=== PATIENT | male | born 1950 | race Caucasian/White ===

== ENCOUNTER → 2024-01-15 | Outpatient (CLI) | payer MEDICARE, MEDICAID ==
[~2024-01-15] MED LIST: APIX5TAB3 PO; ATOR40TA72 PO; QUET50TA24 PO; iohexol 350MG/ML 100ml bottle IV ONE
[2024-01-15 10:36] LABS: ANION GAP 7 (8-16); BLOOD UREA NITROGEN 16 MG/DL (7-18); BUN/CREATININE RATIO 9.3 (10.0-20.0); CALCIUM 9.3 MG/DL (8.5-10.1); CHLORIDE 101 MMOL/L (99-107); CREATININE 1.72 MG/DL (0.60-1.10); GLUCOSE 122 MG/DL (70-104); SODIUM 142 MMOL/L (135-145); TOTAL CARBON DIOXIDE 33.7 MMOL/L (24-32); eGFR 39 ML/MIN
[2024-01-15 11:08] LABS: POTASSIUM 2.2 MMOL/L (3.5-5.1)
== END | disposition home or self-care (01) ==
LOC: RAD 09:41 → MERGE 11:00
PROVIDERS: ATTEND Internal Medicine Interventional Cardiology
DX: I71.21 Aneurysm of the ascending aorta, without rupture (principal); I10 Essential (primary) hypertension; I50.32 Chronic diastolic (congestive) heart failure; I71.20 Thoracic aortic aneurysm, without rupture, unspecified; I11.0 Hypertensive heart disease with heart failure; K76.89 Other specified diseases of liver; K22.89 Other specified disease of esophagus; K20.90 Esophagitis, unspecified without bleeding; K76.6 Portal hypertension
CPT/HCPCS: 36415; 71275; 80048; Q9967

== ENCOUNTER 2024-01-29 12:22 | Outpatient (CLI) | payer MEDICARE, MEDICAID ==
[~2024-01-29 12:22] MED LIST changes: -iohexol 350MG/ML 100ml bottle IV ONE
[2024-01-29 13:14] LABS: BASOPHILS # (AUTO) 0.1 X10'3 (0-0.2); BASOPHILS % (AUTO) 0.8 % (0-1); EOSINOPHILS # (AUTO) 0.3 X10'3 (0-0.9); EOSINOPHILS % (AUTO) 3.3 % (0-6); HEMATOCRIT 34.9 % (42.0-52.0); LYMPHOCYTES # (AUTO) 1.7 X10'3 (1.1-4.8); MEAN CORPUSCULAR HEMOGLOBIN 24.9 PG (27.0-31.0); MEAN CORPUSCULAR HGB CONC 31.5 g/dL (33.0-36.5); MEAN CORPUSCULAR VOLUME 79.1 FL (78-98); MEAN PLATELET VOLUME 8.2 FL (7.4-10.4); MONOCYTES # (AUTO) 0.7 X10'3 (0-0.9); NEUTROPHILS # (AUTO) 5.4 X10'3 (1.8-7.7); NEUTROPHILS % (AUTO) 65.9 % (42-75); PLATELET COUNT 282 X10'3 (140-440); RED BLOOD COUNT 4.41 X10'6 (4.70-6.10); RED CELL DISTRIBUTION WIDTH 20.2 % (11.5-14.5); WHITE BLOOD COUNT 8.2 X10'3 (4.5-11.0)
[2024-01-29 13:27] LABS: APTT 31 SECONDS (22-32); PROTHROMBIN TIME 10.7 SECONDS (9.0-12.0)
[2024-01-29 13:29] LABS: ALBUMIN 3.2 G/DL (3.4-5.0); ANION GAP 9 (8-16); BLOOD UREA NITROGEN 13 MG/DL (7-18); BUN/CREATININE RATIO 8.3 (10.0-20.0); CHLORIDE 103 MMOL/L (99-107); CHOLESTEROL 134 MG/DL (0-200); CREATININE 1.56 MG/DL (0.60-1.10); GLUCOSE 108 MG/DL (70-104); HDL CHOLESTEROL 44 MG/DL (35-60); LDL CHOLESTEROL 52 MG/DL (50-100); SODIUM 144 MMOL/L (135-145); TRIGLYCERIDES 162 MG/DL (20-135); eGFR 44 ML/MIN
[2024-01-29 13:39] LABS: POTASSIUM 2.7 MMOL/L (3.5-5.1)
[2024-02-02] MEDS ORDERED: ALLO100T PO (12:10)
[2024-02-02] MEDS ORDERED: FURO20TA4 PO (12:10)
[2024-02-02] MEDS ORDERED: SOTA80TA PO (12:10)
[2024-02-02] MEDS ORDERED: POTA-366 PO (12:10)
[2024-02-02] MEDS ORDERED: AMLO10TA13 PO (12:10)
[2024-02-02] MEDS ORDERED: LISI40TA13 PO (12:10)
== END 2024-01-29 23:59 | disposition home or self-care (01) ==
LOC: LAB 12:22
PROVIDERS: ATTEND Internal Medicine Interventional Cardiology
DX: I10 Essential (primary) hypertension (principal); E78.5 Hyperlipidemia, unspecified; I48.91 Unspecified atrial fibrillation
CPT/HCPCS: 80048; 80061; 85025; 85610; 85730

== ENCOUNTER 2024-03-01 16:13 | Outpatient (CLI) | payer MEDICARE, MEDICAID ==
[~2024-03-01 16:13] MED LIST changes: +ALLO100T PO; +AMLO10TA13 PO; +FURO20TA4 PO; +LISI40TA13 PO; +POTA-366 PO; +SOTA80TA PO
[2024-03-01 17:01] LABS: ALANINE AMINOTRANSFERASE 16 U/L (12-78); ALBUMIN 3.4 G/DL (3.4-5.0); ALBUMIN/GLOBULIN RATIO 0.6 (1.1-1.5); ALKALINE PHOSPHATASE 104 IU/L (46-116); ANION GAP 7 (8-16); ASPARTATE AMINO TRANSFERASE 11 U/L (10-37); BILIRUBIN,TOTAL 0.5 MG/DL (0.1-1.0); BLOOD UREA NITROGEN 16 MG/DL (7-18); BUN/CREATININE RATIO 9.1 (10.0-20.0); CALCIUM 9.4 MG/DL (8.5-10.1); CHLORIDE 103 MMOL/L (99-107); CREATININE 1.75 MG/DL (0.60-1.10); GLUCOSE 94 MG/DL (70-104); POTASSIUM 3.1 MMOL/L (3.5-5.1); SODIUM 139 MMOL/L (135-145); TOTAL CARBON DIOXIDE 29.1 MMOL/L (24-32); TOTAL PROTEIN 8.7 G/DL (6.4-8.2); eGFR 39 ML/MIN
== END 2024-03-01 23:59 | disposition home or self-care (01) ==
LOC: LAB 16:13
PROVIDERS: ATTEND Thoracic Surgery (Cardiothoracic Vascular Surgery)
DX: I12.9 Hypertensive chronic kidney disease with stage 1 through stage 4 chronic kidney disease, or unspecified chronic kidney disease (principal); N18.9 Chronic kidney disease, unspecified; I71.21 Aneurysm of the ascending aorta, without rupture
CPT/HCPCS: 36415; 80053; 82088; 84244

== ENCOUNTER 2024-03-28 08:30 | Inpatient (IN) | payer OTHER, MEDICAID ==
[~2024-03-28] VITALS: Ht 188 cm; Wt 119.5 kg
[~2024-03-28 08:30] MED LIST changes: -APIX5TAB3 PO; -POTA-366 PO
[2024-04-04 15:13] LABS: BASOPHILS # (AUTO) 0.1 X10'3 (0-0.2); BASOPHILS % (AUTO) 0.8 % (0-1); EOSINOPHILS # (AUTO) 0.2 X10'3 (0-0.9); EOSINOPHILS % (AUTO) 3.4 % (0-6); LYMPHOCYTES # (AUTO) 1.7 X10'3 (1.1-4.8); LYMPHOCYTES % (AUTO) 24.1 % (21-51); MEAN CORPUSCULAR HEMOGLOBIN 26.6 PG (27.0-31.0); MEAN CORPUSCULAR HGB CONC 31.8 g/dL (33.0-36.5); MEAN CORPUSCULAR VOLUME 83.7 FL (78-98); MEAN PLATELET VOLUME 8.6 FL (7.4-10.4); MONOCYTES # (AUTO) 0.8 X10'3 (0-0.9); NEUTROPHILS # (AUTO) 4.1 X10'3 (1.8-7.7); NEUTROPHILS % (AUTO) 59.7 % (42-75); PRE OP HEMATOCRIT 35.9 % (42.0-52.0); PRE OP HEMOGLOBIN 11.4 g/dL (14.0-17.9); PRE OP PLATELET COUNT 228 X10'3 (140-440); PRE OP WHITE BLOOD COUNT 6.9 10'3 (4.8-10.8); RED BLOOD COUNT 4.29 X10'6 (4.70-6.10); RED CELL DISTRIBUTION WIDTH 20.3 % (11.5-14.5)
[2024-04-04] MEDS ORDERED: APIX5TAB3 PO (15:15)
[2024-04-04 15:29] LABS: HEMOGLOBIN A1C 5.9 % (4.5-6.2)
[2024-04-04 15:38] LABS: PRE OP PROTIME 10.9 SECONDS (9.0-12.0)
[2024-04-04 15:40] LABS: ALBUMIN 3.3 G/DL (3.4-5.0); ALBUMIN/GLOBULIN RATIO 0.7 (1.1-1.5); ALKALINE PHOSPHATASE 114 IU/L (46-116); BLOOD UREA NITROGEN 13 MG/DL (7-18); CALCIUM 9.3 MG/DL (8.5-10.1); CHLORIDE 104 MMOL/L (99-107); CREATININE 1.62 MG/DL (0.60-1.10); PRE OP ALT 13 U/L (30-65); PRE OP ANION GAP 7 (8-16); PRE OP AST 13 U/L (10-37); PRE OP BILIRUB, TOTAL 0.5 MG/DL (0.0-1.0); PRE OP GLUCOSE 99 MG/DL (70-104); PRE OP SODIUM 143 MMOL/L (135-145); TOTAL CARBON DIOXIDE 31.8 MMOL/L (24-32); TOTAL PROTEIN 8.2 G/DL (6.4-8.2); eGFR 42 ML/MIN
[2024-04-04 15:45] LABS: ANISOCYTOSIS 3+; PLATELET ESTIMATE NORMAL
[2024-04-04 15:50] LABS: PRE OP POTASSIUM 2.7 MMOL/L (3.4-5.1)
[2024-04-05 05:44] LABS: ABG BASE EXCESS 4.5 mmol/L (-2.0-3.0); ABG HCO3 27.7 mmol/L (21.0-28.0); ABG OXYGEN SATURATION 92.4 % (94.0-98.0); ABG PCO2 (T) 36.2 mmHg (35.0-48.0); ABG PH (T) 7.501 (7.350-7.450); ABG PO2 (T) 64.2 mmHg (83.0-108.0); ALLEN'S TEST POSITIVE; FCOHb 2.1 % (0.5-1.5); FHHb 7.4 % (0.0-5.0); FMetHb 0.3 % (0.0-1.5); FO2Hb 90.2 % (94.0-98.0); MODE ROOM AIR
[2024-04-11] VITALS (22 sets, daily range): BP systolic 86–127; BP diastolic 48–78; PULSE 51–110; RESP 12–22; TEMP 98.4; O2SAT 90–100
[2024-04-11] MEDS: metoprolol tartrate 12.5mg (1/2 tablet) PO ONE (05:30)
[2024-04-11] MEDS: DOCUMENT DATE & TIME OF BETA-BLOCKER PO ONE (05:30)
[2024-04-11] MEDS: cefazolin 2gm/D5W 100mL 100 ML IV ONE (05:30)
[2024-04-11] MEDS ORDERED: dextrose 50%-water 50ml dispensing syringe IV PRN ×2 (05:30→11:15)
[2024-04-11] MEDS: Insulin Reg/NS 100units/100mL 100 ML IV SCH ×2 (05:30→11:54)
[2024-04-11] MEDS: famotidine 20mg tablet PO ONE (06:29)
[2024-04-11] MEDS: mupirocin 2% nasal ointment 1gm UD NS ONE (06:30)
[2024-04-11] MEDS: ringers solution, lacted 1,000 ML IV SCH (06:31)
[2024-04-11 06:41] LABS: ISTAT CREATININE 2.5 mg/dL (0.8-1.3); ISTAT HGB 11.9 g/dl (14.0-17.9); ISTAT IONIZED CALCIUM 1.11 mmol/L (1.03-1.32)
[2024-04-11] MEDS: BUPIVAcaine 2.5mg/ml inj 50ml vial (contains preservative) ONE (06:44)
[2024-04-11 07:01] LABS: ISTAT K CONFIRMATION 2.9 mmol/L
[2024-04-11] MEDS: ceFAZolin 1000mg inj ONE (07:09)
[2024-04-11] MEDS: vancomycin 1,000mg inj ONE (07:10)
[2024-04-11] MEDS: epiNEPHrine 1 mg/ml inj ONE (07:10)
[2024-04-11] MEDS ORDERED: MIDAZolam 1mg/ml 10ml vial ONE (07:21)
[2024-04-11] MEDS ORDERED: SUfentanil 50mcg/ml 1ml amp IV ONE (07:26)
[2024-04-11] MEDS ORDERED: fentaNYL/PF 50MCG/1 ML 2ML syringe IV PRN (07:30)
[2024-04-11] MEDS: FENTANYL-0.9 % NACL/PF 100 ML IV SCH (07:30)
[2024-04-11] MEDS: midazolam 1 mg/ML 2ml injection IV ONE (07:30)
[2024-04-11] MEDS: midazolam 100mg in NS 100ml 100 ML IV SCH (07:30)
[2024-04-11] MEDS ORDERED: isoflurane 100ml inhalation liquid IH ONE (07:56)
[2024-04-11] MEDS: LORazepam 2 mg/ml vial IV PRN (07:58)
[2024-04-11 07:59] LABS: ISTAT K 2.9 mmol/L (3.5-5.1)
[2024-04-11 08:07] LABS: BILIRUBIN,URINE NEGATIVE (Neg); CLARITY,URINE SLIGHTLY CLOUDY (Clear); COLOR,URINE YELLOW (Yellow); GLUCOSE, URINE NEGATIVE (Neg); KETONES,URINE NEGATIVE (Neg); LEUKOCYTE ESTERASE ,URINE MODERATE (Neg); NITRITES, URINE POSITIVE (Neg); OCCULT BLOOD,URINE NEGATIVE (Neg); PROTEIN,URINE NEGATIVE (Neg); UROBILINOGEN,URINE 0.2 E.U/dL (0.2-1.0)
[2024-04-11 08:13] LABS: UA COLLECTION TYPE CLN CATCH MIDSTREAM
[2024-04-11 08:16] LABS: BACTERIA,URINE 3+ /HPF (Neg); SQUAMOUS EPITHELIAL CELL,UR MODERATE /LPF (FEW)
[2024-04-11 08:17] LABS: RBC,URINE 0-2 /HPF (0-2); WBC,URINE TNTC /HPF (0-4)
[2024-04-11 08:40] LABS: ABG BASE EXCESS -1.7 mmol/L (-2.0-3.0); ABG HCO3 23.9 mmol/L (21.0-28.0); ABG OXYGEN SATURATION 99.7 % (94.0-98.0); ABG PH 7.353 (7.350-7.450); CL (ABG) 104 mmol/L (98-107); FCOHb 0.3 % (0.5-1.5); FHHb 0.3 % (0.0-5.0); FMetHb 0.3 % (0.0-1.5); FO2Hb 99.1 % (94.0-98.0); GLUCOSE (ABG) 104 mg/dl (65-95); IONIZED CA (ABG) 1.11 mmol/L (1.15-1.33); TOTAL HEMOGLOBIN 10.6 G/dl (13.5-17.5)
[2024-04-11 09:03] LABS: ABG PO2 305.8 mmHg (83.0-108.0); K (ABG) 2.7 mmol/L (3.40-4.50)
[2024-04-11] MEDS ORDERED: 0.9 % SODIUM CHLORIDE 10 ML VIAL ONE (09:04)
[2024-04-11] MEDS ORDERED: LIDOcaine 2% (20mg/ml) 5ml vial ONE (09:04)
[2024-04-11] MEDS ORDERED: propofol inj 20 ML IV ONE (09:04)
[2024-04-11] MEDS ORDERED: rocuronium 10mg/ml inj IV ONE ×3 (09:04)
[2024-04-11] MEDS ORDERED: phenylephrine 10mg/ml inj. -priapism dosing ONE (09:04)
[2024-04-11 09:05] LABS: ACT @ 1.70 U 320 SEC (193-297); ACT @ 2.84 U 414 SEC (260-420); BASELINE ACT 157 SEC (101-148)
[2024-04-11] MEDS ORDERED: albumin (Human) 5% 250ml 250 ML IV ONE (09:09)
[2024-04-11 09:10] LABS: ABG BASE EXCESS VENOUS -0.2 mmol/L (-2.0-3.0); ABG HCO3 VENOUS 25.9 mmol/L (22.0-29.0); ABG PH (VENOUS) 7.332 (7.320-7.430); ABG PO2 VENOUS 51.4 mmHg (23.0-48.0); CL (ABG) 100 mmol/L (98-107); FCOHb VENOUS 0.5 % (0.5-1.5); FHHb VENOUS 17.9 %; FMetHb VENOUS 0.1 % (0.5-1.5); FO2Hb VENOUS 81.5 % (0-80.0); GLUCOSE (ABG) 108 mg/dl (65-95); IONIZED CA (ABG) 1.05 mmol/L (1.15-1.33); K (ABG) 3.3 mmol/L (3.40-4.50); TOTAL HEMOGLOBIN 8.2 G/dl (13.5-17.5)
[2024-04-11 09:15] LABS: ABG HCO3 26.2 mmol/L (21.0-28.0); ABG PCO2 44.1 mmHg (35.0-48.0); ABG PH 7.391 (7.350-7.450); CL (ABG) 101 mmol/L (98-107); FCOHb 0.8 % (0.5-1.5); FMetHb 0.1 % (0.0-1.5); FO2Hb 99.1 % (94.0-98.0); GLUCOSE (ABG) 110 mg/dl (65-95); IONIZED CA (ABG) 1.05 mmol/L (1.15-1.33); K (ABG) 3.2 mmol/L (3.40-4.50); TOTAL HEMOGLOBIN 8.2 G/dl (13.5-17.5)
[2024-04-11 09:42] LABS: ABG BASE EXCESS -0.1 mmol/L (-2.0-3.0); ABG HCO3 24.9 mmol/L (21.0-28.0); ABG OXYGEN SATURATION 99.8 % (94.0-98.0); ABG PCO2 42.4 mmHg (35.0-48.0); ABG PH 7.387 (7.350-7.450); CL (ABG) 101 mmol/L (98-107); FCOHb 0.4 % (0.5-1.5); FHHb 0.2 % (0.0-5.0); FMetHb 0.2 % (0.0-1.5); FO2Hb 99.2 % (94.0-98.0); GLUCOSE (ABG) 108 mg/dl (65-95); IONIZED CA (ABG) 1.07 mmol/L (1.15-1.33); K (ABG) 3.3 mmol/L (3.40-4.50); TOTAL HEMOGLOBIN 8.6 G/dl (13.5-17.5)
[2024-04-11 10:22] LABS: ABG BASE EXCESS 1.1 mmol/L (-2.0-3.0); ABG HCO3 25.4 mmol/L (21.0-28.0); ABG OXYGEN SATURATION 99.8 % (94.0-98.0); ABG PH 7.432 (7.350-7.450); CL (ABG) 102 mmol/L (98-107); FCOHb 0.5 % (0.5-1.5); FHHb 0.2 % (0.0-5.0); FMetHb 0.3 % (0.0-1.5); GLUCOSE (ABG) 120 mg/dl (65-95); IONIZED CA (ABG) 1.28 mmol/L (1.15-1.33); K (ABG) 5.1 mmol/L (3.40-4.50); TOTAL HEMOGLOBIN 7.9 G/dl (13.5-17.5)
[2024-04-11 10:33] LABS: ABG BASE EXCESS -0.6 mmol/L (-2.0-3.0); ABG HCO3 23.6 mmol/L (21.0-28.0); ABG OXYGEN SATURATION 99.7 % (94.0-98.0); ABG PCO2 36.6 mmHg (35.0-48.0); ABG PH 7.427 (7.350-7.450); CL (ABG) 103 mmol/L (98-107); FCOHb 0.9 % (0.5-1.5); FHHb 0.3 % (0.0-5.0); FMetHb 0.3 % (0.0-1.5); FO2Hb 98.5 % (94.0-98.0); GLUCOSE (ABG) 113 mg/dl (65-95); IONIZED CA (ABG) 1.16 mmol/L (1.15-1.33); K (ABG) 3.7 mmol/L (3.40-4.50)
[2024-04-11 10:37] LABS: ACTIVATED CLOTTING TIME 143 SEC (101-148)
[2024-04-11] MEDS ORDERED: normal saline 250ml IV soln 250 ML IV PRN (11:15)
[2024-04-11] MEDS ORDERED: insulin glargine (Lantus) pen - multi-dose SQ PRN (11:15)
[2024-04-11] MEDS ORDERED: sodium phosphate inj. 15 MMOL in dextrose 5%-water 250 ML IV PRN (11:15)
[2024-04-11] MEDS ORDERED: ondansetron/PF 4mg/2ml inj IV PRN (11:15)
[2024-04-11] MEDS ORDERED: nitroGLYCERIN-Tridil 50MG/D5W 250 ML IV PRN (11:15)
[2024-04-11] MEDS ORDERED: potassium Cl 40MEQ/270ML bag 250 ML IV PRN (11:15)
[2024-04-11] MEDS ORDERED: magnesium sulf-water 2g/50mL 50 ML IV PRN (11:15)
[2024-04-11] MEDS ORDERED: morphine 2 MG/ML inj. syringe IV PRN (11:15)
[2024-04-11] MEDS ORDERED: metoclopramide 5 mg/ml inj IV PRN (11:15)
[2024-04-11] MEDS ORDERED: Neutra Phos packet PO PRN (11:15)
[2024-04-11] MEDS ORDERED: potassium CL 10mEq/100ml bag 100 ML IV PRN (11:15)
[2024-04-11] MEDS ORDERED: DOBUTamine-DoBUTrex 500mg/D5W 250 ML IV PRN (11:15)
[2024-04-11] MEDS ORDERED: acetaminophen 325mg tablet PO PRN (11:15)
[2024-04-11] MEDS ORDERED: sodium phosphate inj. 30 MMOL in dextrose 5%-water 250 ML IV PRN (11:15)
[2024-04-11] MEDS ORDERED: magnesium hydroxide 30ml (MOM) UD suspension PO PRN (11:15)
[2024-04-11] MEDS ORDERED: mineral oil 133ml enema RC PRN (11:15)
[2024-04-11] MEDS ORDERED: niCARDipine-NS 40mg/200ml IVPB 200 ML IV PRN (11:15)
[2024-04-11] MEDS ORDERED: bisacodyl 10mg suppository rectal RC PRN (11:15)
[2024-04-11 11:31] LABS: ABG BASE EXCESS -1.2 mmol/L (-2.0-3.0); ABG HCO3 24.9 mmol/L (21.0-28.0); ABG OXYGEN SATURATION 99.6 % (94.0-98.0); ABG PCO2 (T) 44.2 mmHg (35.0-48.0); ABG PH (T) 7.361 (7.350-7.450); ABG PO2 (T) 233.6 mmHg (83.0-108.0); FCOHb 0.4 % (0.5-1.5); FHHb 0.4 % (0.0-5.0); FMetHb 0.2 % (0.0-1.5); MODE VENT - SIMV; PATIENT TEMPERATURE 35.3; PEEP 5 cm H2O; RESPIRATORY RATE 12 b/min; TIDAL VOLUME 600 mL; TOTAL HEMOGLOBIN 11.4 G/dl (13.5-17.5)
[2024-04-11 11:41] LABS: BASOPHILS # (AUTO) 0.1 X10'3 (0-0.2); BASOPHILS % (AUTO) 0.4 % (0-1); EOSINOPHILS # (AUTO) 0.3 X10'3 (0-0.9); EOSINOPHILS % (AUTO) 2.3 % (0-6); HEMATOCRIT 29.4 % (42.0-52.0); HEMOGLOBIN 9.3 g/dl (14.0-17.9); LYMPHOCYTES # (AUTO) 1.6 X10'3 (1.1-4.8); LYMPHOCYTES % (AUTO) 11.4 % (21-51); MEAN CORPUSCULAR HEMOGLOBIN 26.8 PG (27.0-31.0); MEAN CORPUSCULAR HGB CONC 31.6 g/dL (33.0-36.5); MONOCYTES # (AUTO) 0.7 X10'3 (0-0.9); MONOCYTES % (AUTO) 4.9 % (2-12); NEUTROPHILS # (AUTO) 11.4 X10'3 (1.8-7.7); PLATELET COUNT 170 X10'3 (140-440); RED BLOOD COUNT 3.46 X10'6 (4.70-6.10); RED CELL DISTRIBUTION WIDTH 20.3 % (11.5-14.5); WHITE BLOOD COUNT 14.1 X10'3 (4.5-11.0)
[2024-04-11 11:54] LABS: APTT 29 SECONDS (22-32); INR 1.2 INR; PROTHROMBIN TIME 12.3 SECONDS (9.0-12.0)
[2024-04-11] MEDS: sodium chloride 0.45% 1,000 ML IV SCH (11:54)
[2024-04-11 12:00] LABS: ALANINE AMINOTRANSFERASE 6 U/L (12-78); ALBUMIN 2.8 G/DL (3.4-5.0); ALBUMIN/GLOBULIN RATIO 0.8 (1.1-1.5); ALKALINE PHOSPHATASE 77 IU/L (46-116); ANION GAP 9 (8-16); ASPARTATE AMINO TRANSFERASE 20 U/L (10-37); BILIRUBIN,TOTAL 0.4 MG/DL (0.1-1.0); BLOOD UREA NITROGEN 27 MG/DL (7-18); BUN/CREATININE RATIO 12.2 (10.0-20.0); CALCIUM 8.7 MG/DL (8.5-10.1); CHLORIDE 105 MMOL/L (99-107); CREATININE 2.22 MG/DL (0.60-1.10); GLUCOSE 139 MG/DL (70-104); PHOSPHORUS 2.4 MG/DL (2.3-4.5); POTASSIUM 3.7 MMOL/L (3.5-5.1); SODIUM 140 MMOL/L (135-145); TOTAL CARBON DIOXIDE 26.3 MMOL/L (24-32); TOTAL PROTEIN 6.2 G/DL (6.4-8.2); eCRCL 35 ML/MIN; eGFR 29 ML/MIN
[2024-04-11] MEDS: potassium Cl 20mEq/100mL bag 100 ML IV PRN (12:22)
[2024-04-11] MEDS: gabapentin 300mg capsule PO SCH (12:23)
[2024-04-11 12:56] LABS: ANISOCYTOSIS 3+; ELLIPTOCYTES FEW; PLATELET ESTIMATE NORMAL; SCHISTOCYTES FEW
[2024-04-11] MEDS: potassium Cl 40MEQ/1/2NS 520ml 520 ML IV PRN (13:20)
[2024-04-11 13:29] LABS: FIBRINOGEN 210 MG/DL (177-424)
[2024-04-11] MEDS: dexmedetomidin/NS 400mcg/100ml 100 ML IV SCH ×2 (15:39→23:01)
[2024-04-11] MEDS: albumin (Human) 5% 250ml 250 ML IV PRN (16:01)
[2024-04-11] MEDS: cefazolin 2gm/D5W 100mL 100 ML IV SCH (16:17)
[2024-04-11] MEDS: NORepinephrine 8mg/ 250ml NS 250 ML IV SCH (17:30)
[2024-04-11 17:45] LABS: BASOPHILS % (AUTO) 0.1 % (0-1); EOSINOPHILS % (AUTO) 0 % (0-6); HEMATOCRIT 24.3 % (42.0-52.0); HEMOGLOBIN 7.7 g/dl (14.0-17.9); LYMPHOCYTES # (AUTO) 0.5 X10'3 (1.1-4.8); LYMPHOCYTES % (AUTO) 4.2 % (21-51); MEAN CORPUSCULAR HEMOGLOBIN 26.9 PG (27.0-31.0); MEAN CORPUSCULAR HGB CONC 31.9 g/dL (33.0-36.5); MEAN CORPUSCULAR VOLUME 84.5 FL (78-98); MEAN PLATELET VOLUME 8.7 FL (7.4-10.4); MONOCYTES # (AUTO) 0.3 X10'3 (0-0.9); MONOCYTES % (AUTO) 2.8 % (2-12); NEUTROPHILS # (AUTO) 11.3 X10'3 (1.8-7.7); NEUTROPHILS % (AUTO) 92.9 % (42-75); PLATELET COUNT 153 X10'3 (140-440); RED BLOOD COUNT 2.87 X10'6 (4.70-6.10); RED CELL DISTRIBUTION WIDTH 20.1 % (11.5-14.5); WHITE BLOOD COUNT 12.2 X10'3 (4.5-11.0)
[2024-04-11 17:53] LABS: ALBUMIN 3.3 G/DL (3.4-5.0); ANION GAP 7 (8-16); BLOOD UREA NITROGEN 28 MG/DL (7-18); BUN/CREATININE RATIO 11.9 (10.0-20.0); CALCIUM 8.2 MG/DL (8.5-10.1); CHLORIDE 109 MMOL/L (99-107); CREATININE 2.36 MG/DL (0.60-1.10); GLUCOSE 153 MG/DL (70-104); MAGNESIUM 2.7 MG/DL (1.5-2.4); PHOSPHORUS 2.3 MG/DL (2.3-4.5); POTASSIUM 3.8 MMOL/L (3.5-5.1); SODIUM 141 MMOL/L (135-145); TOTAL CARBON DIOXIDE 25.2 MMOL/L (24-32); eCRCL 33 ML/MIN; eGFR 27 ML/MIN
[2024-04-11] MEDS ORDERED: sotalol HCl 40mg (1/2 tablet) PO SCH (20:00)
[2024-04-11] MEDS: sennosides/docusate sodium tablet PO SCH (20:00)
[2024-04-11] MEDS: QUEtiapine 25mg tablet PO SCH (21:00)
[2024-04-11] MEDS: atorvastatin 10mg tablet PO SCH (21:00)
[2024-04-11] MEDS: mupirocin 2% nasal ointment 1gm UD NS SCH (21:11)
[2024-04-11] MEDS: vancomycin/NS 1 GM ADD-VANTAGE 250 ML IV SCH (21:11)
[2024-04-11] MEDS ORDERED: dexmedetomidin/NS 400mcg/100ml 100 ML IV PRN (21:44)
[2024-04-11] MEDS: morphine 4 MG/ML inj SYRINge IV PRN (21:57)
[2024-04-12] VITALS (24 sets, daily range): BP systolic 100–141; BP diastolic 53–90; PULSE 70–79; RESP 10–20; O2SAT 90–98
[2024-04-12 02:21] LABS: BASOPHILS % (AUTO) 0 % (0-1); EOSINOPHILS % (AUTO) 0 % (0-6); HEMATOCRIT 24.3 % (42.0-52.0); HEMOGLOBIN 7.7 g/dl (14.0-17.9); LYMPHOCYTES # (AUTO) 0.6 X10'3 (1.1-4.8); LYMPHOCYTES % (AUTO) 3.8 % (21-51); MEAN CORPUSCULAR HEMOGLOBIN 26.6 PG (27.0-31.0); MEAN CORPUSCULAR HGB CONC 31.6 g/dL (33.0-36.5); MEAN CORPUSCULAR VOLUME 84.4 FL (78-98); MEAN PLATELET VOLUME 8.8 FL (7.4-10.4); MONOCYTES # (AUTO) 0.5 X10'3 (0-0.9); MONOCYTES % (AUTO) 3.1 % (2-12); NEUTROPHILS # (AUTO) 14.4 X10'3 (1.8-7.7); NEUTROPHILS % (AUTO) 93.1 % (42-75); PLATELET COUNT 136 X10'3 (140-440); RED BLOOD COUNT 2.88 X10'6 (4.70-6.10); RED CELL DISTRIBUTION WIDTH 19.8 % (11.5-14.5); WHITE BLOOD COUNT 15.4 X10'3 (4.5-11.0)
[2024-04-12 02:32] LABS: APTT 27 SECONDS (22-32); INR 1.1 INR; PROTHROMBIN TIME 11.1 SECONDS (9.0-12.0)
[2024-04-12 02:34] LABS: ALANINE AMINOTRANSFERASE 10 U/L (12-78); ALBUMIN 3.2 G/DL (3.4-5.0); ALKALINE PHOSPHATASE 75 IU/L (46-116); ANION GAP 8 (8-16); ASPARTATE AMINO TRANSFERASE 20 U/L (10-37); BILIRUBIN,TOTAL 0.5 MG/DL (0.1-1.0); BLOOD UREA NITROGEN 28 MG/DL (7-18); BUN/CREATININE RATIO 13.6 (10.0-20.0); CALCIUM 8.5 MG/DL (8.5-10.1); CHLORIDE 111 MMOL/L (99-107); CREATININE 2.06 MG/DL (0.60-1.10); GLUCOSE 129 MG/DL (70-104); MAGNESIUM 2.4 MG/DL (1.5-2.4); PHOSPHORUS 2.2 MG/DL (2.3-4.5); POTASSIUM 3.9 MMOL/L (3.5-5.1); SODIUM 144 MMOL/L (135-145); TOTAL CARBON DIOXIDE 25.5 MMOL/L (24-32); TOTAL PROTEIN 6.5 G/DL (6.4-8.2); eCRCL 38 ML/MIN; eGFR 32 ML/MIN
[2024-04-12 06:48] LABS: ABG PO2 389.7 mmHg (83.0-108.0)
[2024-04-12 06:48] LABS: ABG PO2 404.9 mmHg (83.0-108.0)
[2024-04-12 06:49] LABS: ABG PO2 364.1 mmHg (83.0-108.0)
[2024-04-12 06:50] LABS: ABG PO2 417.4 mmHg (83.0-108.0)
[2024-04-12] MEDS: allopurinol 100mg tablet PO SCH (07:34)
[2024-04-12] MEDS: metoprolol tartrate 12.5mg (1/2 tablet) PO SCH (07:34)
[2024-04-12] MEDS: aspirin 81mg tab.chew PO SCH (07:35)
[2024-04-12] MEDS ORDERED: DOBUTamine-DoBUTrex 500mg/D5W 250 ML IV PRN (14:35)
[2024-04-12] MEDS: Insulin Reg/NS 100units/100mL 100 ML IV SCH (14:38)
[2024-04-12] MEDS: FENTANYL-0.9 % NACL/PF 100 ML IV SCH (14:39)
[2024-04-12] MEDS ORDERED: niCARDipine-NS 40mg/200ml IVPB 200 ML IV PRN (14:39)
[2024-04-12] MEDS ORDERED: nitroGLYCERIN-Tridil 50MG/D5W 250 ML IV PRN (14:40)
[2024-04-12] MEDS: HYDROcodone/acetaminophen 10/325mg tab PO PRN (17:08)
[2024-04-12] MEDS ORDERED: glucagon, human recombinant 1mg kit SUBCUT PRN (17:25)
[2024-04-12] MEDS ORDERED: dextrose 50%-water 50ml dispensing syringe IV PRN ×2 (17:25)
[2024-04-12] MEDS ORDERED: DEXTROSE 15 GM of carb/4 tabs (each vial/BOTTLE has 4 tablets) PO PRN ×2 (17:25)
[2024-04-12] MEDS: INSULIN LISPRO 100 UNIT/ML INSULN.PEN MULTI-DOSE SQ SCH (21:00)
[2024-04-12] MEDS: insulin glargine (Lantus) pen - multi-dose SQ SCH (21:00)
[2024-04-12] MEDS: gabapentin 300mg capsule PO SCH (21:00)
[2024-04-13] VITALS (28 sets, daily range): BP systolic 90–150; BP diastolic 54–99; PULSE 62–79; RESP 12–22; TEMP 97; O2SAT 86–98
[2024-04-13 02:41] LABS: BASOPHILS % (AUTO) 0.1 % (0-1); EOSINOPHILS % (AUTO) 0 % (0-6); LYMPHOCYTES # (AUTO) 0.5 X10'3 (1.1-4.8); MEAN CORPUSCULAR HEMOGLOBIN 26.7 PG (27.0-31.0); MEAN CORPUSCULAR HGB CONC 31.7 g/dL (33.0-36.5); MEAN CORPUSCULAR VOLUME 84.1 FL (78-98); MEAN PLATELET VOLUME 8.9 FL (7.4-10.4); MONOCYTES # (AUTO) 1.4 X10'3 (0-0.9); MONOCYTES % (AUTO) 7.6 % (2-12); NEUTROPHILS # (AUTO) 16.2 X10'3 (1.8-7.7); NEUTROPHILS % (AUTO) 89.3 % (42-75); PLATELET COUNT 107 X10'3 (140-440); RED BLOOD COUNT 2.43 X10'6 (4.70-6.10); RED CELL DISTRIBUTION WIDTH 20.2 % (11.5-14.5); WHITE BLOOD COUNT 18.1 X10'3 (4.5-11.0)
[2024-04-13 02:44] LABS: HEMATOCRIT 20.4 % (42.0-52.0); HEMOGLOBIN 6.5 g/dl (14.0-17.9)
[2024-04-13 02:52] LABS: ALBUMIN 2.8 G/DL (3.4-5.0); ANION GAP 8 (8-16); BLOOD UREA NITROGEN 33 MG/DL (7-18); BUN/CREATININE RATIO 20.9 (10.0-20.0); CALCIUM 8.4 MG/DL (8.5-10.1); CHLORIDE 108 MMOL/L (99-107); CREATININE 1.58 MG/DL (0.60-1.10); GLUCOSE 150 MG/DL (70-104); MAGNESIUM 2.2 MG/DL (1.5-2.4); PHOSPHORUS 2.4 MG/DL (2.3-4.5); POTASSIUM 3.7 MMOL/L (3.5-5.1); SODIUM 142 MMOL/L (135-145); TOTAL CARBON DIOXIDE 26.1 MMOL/L (24-32); eCRCL 49 ML/MIN; eGFR 43 ML/MIN
[2024-04-13 03:01] LABS: ANISOCYTOSIS 3+; ELLIPTOCYTES FEW; HYPOCHROMASIA 1+; PLATELET ESTIMATE DECREASED; SCHISTOCYTES FEW; TARGET CELLS FEW
[2024-04-13] MEDS: pantoprazole 40mg Tablet.DR PO SCH (07:35)
[2024-04-13 08:05] LABS: BASOPHILS % (AUTO) 0 % (0-1); EOSINOPHILS % (AUTO) 0 % (0-6); HEMATOCRIT 24.1 % (42.0-52.0); HEMOGLOBIN 7.6 g/dl (14.0-17.9); LYMPHOCYTES # (AUTO) 0.5 X10'3 (1.1-4.8); LYMPHOCYTES % (AUTO) 2.7 % (21-51); MEAN CORPUSCULAR HEMOGLOBIN 27.1 PG (27.0-31.0); MEAN CORPUSCULAR HGB CONC 31.5 g/dL (33.0-36.5); MEAN CORPUSCULAR VOLUME 85.9 FL (78-98); MONOCYTES # (AUTO) 1.6 X10'3 (0-0.9); MONOCYTES % (AUTO) 8.2 % (2-12); NEUTROPHILS # (AUTO) 17.5 X10'3 (1.8-7.7); NEUTROPHILS % (AUTO) 89.1 % (42-75); PLATELET COUNT 110 X10'3 (140-440); RED BLOOD COUNT 2.81 X10'6 (4.70-6.10); RED CELL DISTRIBUTION WIDTH 19.3 % (11.5-14.5); WHITE BLOOD COUNT 19.7 X10'3 (4.5-11.0)
[2024-04-13] MEDS: furosemide 40mg/4ml inj IV ONE (08:49)
[2024-04-13] MEDS: potassium Cl 20 mEq SR tablet PO PRN (11:34)
[2024-04-13] MEDS: HYDROcodone/acetaminophen 10/325mg tab PO PRN (21:06)
[2024-04-14] VITALS (16 sets, daily range): BP systolic 95–130; BP diastolic 51–95; PULSE 62–84; RESP 14–26; TEMP 97.2–98.8; O2SAT 89–97
[2024-04-14 02:43] LABS: BASOPHILS % (AUTO) 0.1 % (0-1); EOSINOPHILS % (AUTO) 0 % (0-6); HEMATOCRIT 22.4 % (42.0-52.0); HEMOGLOBIN 7.1 g/dl (14.0-17.9); LYMPHOCYTES # (AUTO) 1.2 X10'3 (1.1-4.8); LYMPHOCYTES % (AUTO) 7.3 % (21-51); MEAN CORPUSCULAR HEMOGLOBIN 27.1 PG (27.0-31.0); MEAN CORPUSCULAR HGB CONC 31.8 g/dL (33.0-36.5); MEAN CORPUSCULAR VOLUME 85.1 FL (78-98); MEAN PLATELET VOLUME 8.9 FL (7.4-10.4); MONOCYTES # (AUTO) 1.7 X10'3 (0-0.9); MONOCYTES % (AUTO) 10.4 % (2-12); NEUTROPHILS # (AUTO) 13.4 X10'3 (1.8-7.7); NEUTROPHILS % (AUTO) 82.2 % (42-75); PLATELET COUNT 102 X10'3 (140-440); RED BLOOD COUNT 2.63 X10'6 (4.70-6.10); RED CELL DISTRIBUTION WIDTH 19.3 % (11.5-14.5); WHITE BLOOD COUNT 16.4 X10'3 (4.5-11.0)
[2024-04-14 02:52] LABS: ALBUMIN 2.6 G/DL (3.4-5.0); ANION GAP 4 (8-16); BLOOD UREA NITROGEN 34 MG/DL (7-18); BUN/CREATININE RATIO 23.3 (10.0-20.0); CALCIUM 7.9 MG/DL (8.5-10.1); CHLORIDE 109 MMOL/L (99-107); CREATININE 1.46 MG/DL (0.60-1.10); GLUCOSE 115 MG/DL (70-104); MAGNESIUM 1.9 MG/DL (1.5-2.4); PHOSPHORUS 2.4 MG/DL (2.3-4.5); POTASSIUM 3.9 MMOL/L (3.5-5.1); SODIUM 139 MMOL/L (135-145); TOTAL CARBON DIOXIDE 26.5 MMOL/L (24-32); eCRCL 53 ML/MIN; eGFR 47 ML/MIN
[2024-04-14] MEDS: magnesium sulf-water 4G/100mL 100 ML IV PRN (07:53)
[2024-04-14] MEDS: furosemide 40mg/4ml inj IV ONE (07:53)
[2024-04-14] MEDS: heparin, porcine 5000 units/ml vial SQ SCH (07:57)
[2024-04-14] MEDS ORDERED: magnesium sulf-water 2g/50mL 50 ML IV PRN (08:15)
[2024-04-14] MEDS ORDERED: potassium CL 10mEq/100ml bag 100 ML IV PRN (08:15)
[2024-04-14] MEDS ORDERED: potassium Cl 20mEq/100mL bag 100 ML IV PRN (08:15)
[2024-04-14] MEDS ORDERED: potassium Cl 40MEQ/1/2NS 520ml 520 ML IV PRN (08:15)
[2024-04-14] MEDS ORDERED: potassium Cl 40MEQ/270ML bag 250 ML IV PRN (08:15)
[2024-04-14] MEDS ORDERED: magnesium sulf-water 4G/100mL 100 ML IV PRN (08:15)
[2024-04-14] MEDS ORDERED: ASPI81TA53 PO (09:21)
[2024-04-14] MEDS ORDERED: HYDR-3972 PO (09:21)
[2024-04-14] MEDS: magnesium Cl slow-release 64mg tablet PO SCH (21:15)
[2024-04-14] MEDS: potassium Cl 20 mEq SR tablet PO PRN (21:16)
[2024-04-15] VITALS (12 sets, daily range): BP systolic 82–135; BP diastolic 55–96; PULSE 80–116; RESP 13–22; TEMP 97.4–98.3; O2SAT 92–98
[2024-04-15 06:56] LABS: BASOPHILS % (AUTO) 0.2 % (0-1); EOSINOPHILS % (AUTO) 0.1 % (0-6); HEMATOCRIT 25.7 % (42.0-52.0); HEMOGLOBIN 8.2 g/dl (14.0-17.9); LYMPHOCYTES # (AUTO) 1.9 X10'3 (1.1-4.8); LYMPHOCYTES % (AUTO) 12.9 % (21-51); MEAN CORPUSCULAR HEMOGLOBIN 27.8 PG (27.0-31.0); MEAN CORPUSCULAR HGB CONC 32.1 g/dL (33.0-36.5); MEAN CORPUSCULAR VOLUME 86.5 FL (78-98); MEAN PLATELET VOLUME 9.6 FL (7.4-10.4); MONOCYTES # (AUTO) 1.4 X10'3 (0-0.9); MONOCYTES % (AUTO) 9.3 % (2-12); NEUTROPHILS # (AUTO) 11.6 X10'3 (1.8-7.7); NEUTROPHILS % (AUTO) 77.5 % (42-75); PLATELET COUNT 122 X10'3 (140-440); RED BLOOD COUNT 2.97 X10'6 (4.70-6.10); RED CELL DISTRIBUTION WIDTH 19.6 % (11.5-14.5); WHITE BLOOD COUNT 14.9 X10'3 (4.5-11.0)
[2024-04-15] MEDS ORDERED: amiodarone/D5 360MG/200ML BAG 200 ML IV SCH (07:05)
[2024-04-15 07:16] LABS: ALBUMIN 2.5 G/DL (3.4-5.0); ANION GAP 8 (8-16); BLOOD UREA NITROGEN 31 MG/DL (7-18); BUN/CREATININE RATIO 18.3 (10.0-20.0); CALCIUM 8.3 MG/DL (8.5-10.1); CHLORIDE 106 MMOL/L (99-107); CREATININE 1.69 MG/DL (0.60-1.10); GLUCOSE 112 MG/DL (70-104); MAGNESIUM 2.7 MG/DL (1.5-2.4); POTASSIUM 3.5 MMOL/L (3.5-5.1); SODIUM 137 MMOL/L (135-145); TOTAL CARBON DIOXIDE 22.8 MMOL/L (24-32); eCRCL 46 ML/MIN; eGFR 40 ML/MIN
[2024-04-15] MEDS: amiodarone 150mg/dext, iso-os 100 ML IV ONE (07:44)
[2024-04-15] MEDS: furosemide 40mg/4ml inj IV ONE (08:10)
[2024-04-15] MEDS: amiodarone/D5 360MG/200ML BAG 200 ML IV SCH (09:28)
[2024-04-15 10:25] LABS: PLATELET ESTIMATE DECREASED
[2024-04-15 10:26] LABS: ANISOCYTOSIS 2+; ELLIPTOCYTES FEW; HYPOCHROMASIA 1+; POLYCHROMASIA 1+; TARGET CELLS 1+
[2024-04-15] MEDS: magnesium citrate 296ml oral solution PO ONE (12:05)
[2024-04-15] MEDS: JUVEN Smoothie Arginine/Glut./Ca2+Bmb (Juven 19.3pkt) 240ml cup PO SCH (17:48)
[2024-04-15] MEDS: sotalol HCl 40mg (1/2 tablet) PO SCH (20:31)
[2024-04-15] MEDS: potassium Cl 20 mEq SR tablet PO PRN (20:32)
[2024-04-16] VITALS (8 sets, daily range): BP systolic 88–116; BP diastolic 49–88; PULSE 78–84; RESP 16–20; TEMP 97.4–98.1; O2SAT 93–96
[2024-04-16 20:13] LABS: BASOPHILS # (AUTO) 0.1 X10'3 (0-0.2); BASOPHILS % (AUTO) 0.3 % (0-1); EOSINOPHILS # (AUTO) 0.1 X10'3 (0-0.9); EOSINOPHILS % (AUTO) 0.7 % (0-6); HEMATOCRIT 24.5 % (42.0-52.0); HEMOGLOBIN 7.7 g/dl (14.0-17.9); LYMPHOCYTES # (AUTO) 1.6 X10'3 (1.1-4.8); LYMPHOCYTES % (AUTO) 9.1 % (21-51); MEAN CORPUSCULAR HEMOGLOBIN 27.5 PG (27.0-31.0); MEAN CORPUSCULAR HGB CONC 31.6 g/dL (33.0-36.5); MONOCYTES # (AUTO) 2.6 X10'3 (0-0.9); NEUTROPHILS # (AUTO) 12.9 X10'3 (1.8-7.7); NEUTROPHILS % (AUTO) 74.9 % (42-75); PLATELET COUNT 219 X10'3 (140-440); RED BLOOD COUNT 2.82 X10'6 (4.70-6.10); RED CELL DISTRIBUTION WIDTH 19.6 % (11.5-14.5); WHITE BLOOD COUNT 17.2 X10'3 (4.5-11.0)
[2024-04-16 20:23] LABS: ALBUMIN 2.5 G/DL (3.4-5.0); ANION GAP 10 (8-16); BLOOD UREA NITROGEN 57 MG/DL (7-18); BUN/CREATININE RATIO 28.9 (10.0-20.0); CALCIUM 8.6 MG/DL (8.5-10.1); CHLORIDE 103 MMOL/L (99-107); CREATININE 1.97 MG/DL (0.60-1.10); GLUCOSE 105 MG/DL (70-104); MAGNESIUM 2.9 MG/DL (1.5-2.4); POTASSIUM 5.3 MMOL/L (3.5-5.1); SODIUM 136 MMOL/L (135-145); TOTAL CARBON DIOXIDE 23.2 MMOL/L (24-32); eCRCL 39 ML/MIN; eGFR 34 ML/MIN
[2024-04-16 20:51] LABS: PLATELET ESTIMATE NORMAL
[2024-04-16 20:52] LABS: ANISOCYTOSIS 2+; BURR CELLS 1+; POLYCHROMASIA 1+
[2024-04-17] VITALS (7 sets, daily range): BP systolic 92–132; BP diastolic 58–71; PULSE 60–91; RESP 16–22; TEMP 97.2–97.8; O2SAT 91–95
[2024-04-17] MEDS ORDERED: SOTA80TA73 PO (08:04)
[2024-04-17 08:29] LABS: BASOPHILS # (AUTO) 0.1 X10'3 (0-0.2); BASOPHILS % (AUTO) 0.3 % (0-1); EOSINOPHILS # (AUTO) 0.1 X10'3 (0-0.9); HEMATOCRIT 23.5 % (42.0-52.0); HEMOGLOBIN 7.5 g/dl (14.0-17.9); LYMPHOCYTES # (AUTO) 2.1 X10'3 (1.1-4.8); LYMPHOCYTES % (AUTO) 13.9 % (21-51); MEAN CORPUSCULAR HEMOGLOBIN 27.8 PG (27.0-31.0); MEAN CORPUSCULAR VOLUME 86.9 FL (78-98); MEAN PLATELET VOLUME 9.1 FL (7.4-10.4); MONOCYTES # (AUTO) 1.9 X10'3 (0-0.9); MONOCYTES % (AUTO) 12.5 % (2-12); NEUTROPHILS % (AUTO) 72.3 % (42-75); PLATELET COUNT 227 X10'3 (140-440); RED BLOOD COUNT 2.71 X10'6 (4.70-6.10); RED CELL DISTRIBUTION WIDTH 19.9 % (11.5-14.5); WHITE BLOOD COUNT 15.2 X10'3 (4.5-11.0)
[2024-04-17 08:48] LABS: ALBUMIN 2.4 G/DL (3.4-5.0); ANION GAP 9 (8-16); BLOOD UREA NITROGEN 56 MG/DL (7-18); BUN/CREATININE RATIO 32.4 (10.0-20.0); CALCIUM 8.8 MG/DL (8.5-10.1); CHLORIDE 102 MMOL/L (99-107); CREATININE 1.73 MG/DL (0.60-1.10); GLUCOSE 88 MG/DL (70-104); MAGNESIUM 2.6 MG/DL (1.5-2.4); POTASSIUM 5.2 MMOL/L (3.5-5.1); SODIUM 134 MMOL/L (135-145); TOTAL CARBON DIOXIDE 22.7 MMOL/L (24-32); eCRCL 45 ML/MIN; eGFR 39 ML/MIN
[2024-04-17 09:17] LABS: ANISOCYTOSIS 2+; ELLIPTOCYTES FEW; HYPOCHROMASIA 1+; PLATELET ESTIMATE NORMAL; POLYCHROMASIA FEW; TARGET CELLS FEW; TEAR DROP CELLS 1+
[2024-04-17 09:18] LABS: BURR CELLS FEW
[2024-04-17] MEDS: ondansetron 4mg rapidly disintigrating tab PO PRN (15:24)
[2024-04-18] VITALS: BP 92/63; PULSE 98; RESP 22; TEMP 97.8; O2SAT 93
[2024-04-18 02:00] VITALS: BP 102/68; PULSE 80; RESP 22; TEMP 97.8; O2SAT 96
[2024-04-18 07:39] LABS: ALBUMIN 2.3 G/DL (3.4-5.0); ANION GAP 6 (8-16); BLOOD UREA NITROGEN 59 MG/DL (7-18); BUN/CREATININE RATIO 31.2 (10.0-20.0); CALCIUM 8.4 MG/DL (8.5-10.1); CHLORIDE 103 MMOL/L (99-107); CREATININE 1.89 MG/DL (0.60-1.10); GLUCOSE 93 MG/DL (70-104); POTASSIUM 5.5 MMOL/L (3.5-5.1); SODIUM 132 MMOL/L (135-145); TOTAL CARBON DIOXIDE 22.7 MMOL/L (24-32); eCRCL 41 ML/MIN; eGFR 35 ML/MIN
[2024-04-18 08:00] VITALS: RESP 20; O2SAT 92
[2024-04-18 18:00] VITALS: BP 120/63; PULSE 94; RESP 18; TEMP 97; O2SAT 96
[2024-04-18 20:00] VITALS: RESP 18; O2SAT 97
[2024-04-18 23:00] VITALS: BP 100/69; PULSE 77; RESP 22; TEMP 97.6; O2SAT 95
[2024-04-19] VITALS (8 sets, daily range): BP systolic 96–150; BP diastolic 58–82; PULSE 64–98; RESP 12–23; TEMP 97.3–98.7; O2SAT 94–97
[2024-04-19 07:43] LABS: ALBUMIN 2.3 G/DL (3.4-5.0); ANION GAP 9 (8-16); BLOOD UREA NITROGEN 66 MG/DL (7-18); BUN/CREATININE RATIO 33.2 (10.0-20.0); CALCIUM 8.6 MG/DL (8.5-10.1); CHLORIDE 102 MMOL/L (99-107); CREATININE 1.99 MG/DL (0.60-1.10); GLUCOSE 96 MG/DL (70-104); SODIUM 131 MMOL/L (135-145); TOTAL CARBON DIOXIDE 20.5 MMOL/L (24-32); eCRCL 39 ML/MIN; eGFR 33 ML/MIN
[2024-04-19 07:44] LABS: POTASSIUM 6.3 MMOL/L (3.5-5.1)
[2024-04-19] MEDS: furosemide 40mg tablet PO ONE (08:05)
[2024-04-19] MEDS: normal saline 500ml IV soln 500 ML IV ONE (08:20)
[2024-04-19] MEDS: acetaminophen 325mg tablet PO PRN (20:10)
[2024-04-20] VITALS (7 sets, daily range): BP systolic 107–137; BP diastolic 74–85; PULSE 76–103; RESP 14–29; TEMP 97.4–98.6; O2SAT 92–98
[2024-04-20 07:22] LABS: ALBUMIN 2.4 G/DL (3.4-5.0); ANION GAP 9 (8-16); BLOOD UREA NITROGEN 62 MG/DL (7-18); CALCIUM 8.5 MG/DL (8.5-10.1); CHLORIDE 101 MMOL/L (99-107); CREATININE 1.94 MG/DL (0.60-1.10); GLUCOSE 99 MG/DL (70-104); POTASSIUM 5.8 MMOL/L (3.5-5.1); SODIUM 132 MMOL/L (135-145); TOTAL CARBON DIOXIDE 22.1 MMOL/L (24-32); eCRCL 40 ML/MIN; eGFR 34 ML/MIN
[2024-04-20 08:34] LABS: BASOPHILS # (AUTO) 0.1 X10'3 (0-0.2); BASOPHILS % (AUTO) 0.4 % (0-1); EOSINOPHILS # (AUTO) 0.1 X10'3 (0-0.9); EOSINOPHILS % (AUTO) 0.4 % (0-6); HEMATOCRIT 22.7 % (42.0-52.0); HEMOGLOBIN 7.1 g/dl (14.0-17.9); LYMPHOCYTES # (AUTO) 1.9 X10'3 (1.1-4.8); LYMPHOCYTES % (AUTO) 11.9 % (21-51); MEAN CORPUSCULAR HEMOGLOBIN 27.3 PG (27.0-31.0); MEAN CORPUSCULAR HGB CONC 31.1 g/dL (33.0-36.5); MEAN CORPUSCULAR VOLUME 87.6 FL (78-98); MEAN PLATELET VOLUME 7.8 FL (7.4-10.4); MONOCYTES # (AUTO) 1.8 X10'3 (0-0.9); MONOCYTES % (AUTO) 11.6 % (2-12); NEUTROPHILS % (AUTO) 75.7 % (42-75); PLATELET COUNT 376 X10'3 (140-440); RED BLOOD COUNT 2.59 X10'6 (4.70-6.10); WHITE BLOOD COUNT 15.8 X10'3 (4.5-11.0)
[2024-04-20] MEDS: apixaban 5mg tablet PO SCH (09:24)
[2024-04-20] MEDS: furosemide 20MG tablet PO SCH (09:25)
[2024-04-20 09:47] LABS: ANISOCYTOSIS 2+; HYPOCHROMASIA 1+; NUCLEATED RED BLOOD CELLS 2 /100WBC (0-0); PLATELET ESTIMATE NORMAL; POLYCHROMASIA FEW; TOTAL CELLS COUNTED 100
[2024-04-20 09:48] LABS: BURR CELLS FEW; ELLIPTOCYTES FEW; TARGET CELLS FEW; TEAR DROP CELLS FEW
[2024-04-21] VITALS (9 sets, daily range): BP systolic 91–128; BP diastolic 54–88; PULSE 62–112; RESP 16–22; TEMP 97.4–98; O2SAT 94–96
[2024-04-21 07:30] LABS: ALBUMIN 2.5 G/DL (3.4-5.0); ANION GAP 7 (8-16); BLOOD UREA NITROGEN 61 MG/DL (7-18); BUN/CREATININE RATIO 33.2 (10.0-20.0); CALCIUM 8.7 MG/DL (8.5-10.1); CHLORIDE 102 MMOL/L (99-107); CREATININE 1.84 MG/DL (0.60-1.10); GLUCOSE 116 MG/DL (70-104); POTASSIUM 5.5 MMOL/L (3.5-5.1); SODIUM 133 MMOL/L (135-145); TOTAL CARBON DIOXIDE 23.6 MMOL/L (24-32); eCRCL 42 ML/MIN; eGFR 36 ML/MIN
[2024-04-22 02:00] VITALS: BP 90/63; PULSE 103; RESP 19; TEMP 97.1; O2SAT 97
[2024-04-22 06:00] VITALS: BP 142/93; PULSE 97; RESP 17; TEMP 96.7; O2SAT 97
[2024-04-22 07:48] LABS: BASOPHILS # (AUTO) 0.1 X10'3 (0-0.2); BASOPHILS % (AUTO) 0.4 % (0-1); EOSINOPHILS % (AUTO) 0.2 % (0-6); HEMATOCRIT 22.7 % (42.0-52.0); HEMOGLOBIN 7.1 g/dl (14.0-17.9); LYMPHOCYTES # (AUTO) 1.5 X10'3 (1.1-4.8); LYMPHOCYTES % (AUTO) 8.2 % (21-51); MEAN CORPUSCULAR HEMOGLOBIN 27.2 PG (27.0-31.0); MEAN CORPUSCULAR HGB CONC 31.2 g/dL (33.0-36.5); MEAN CORPUSCULAR VOLUME 87.3 FL (78-98); MEAN PLATELET VOLUME 7.5 FL (7.4-10.4); MONOCYTES # (AUTO) 1.4 X10'3 (0-0.9); MONOCYTES % (AUTO) 7.9 % (2-12); NEUTROPHILS # (AUTO) 14.8 X10'3 (1.8-7.7); NEUTROPHILS % (AUTO) 83.3 % (42-75); PLATELET COUNT 456 X10'3 (140-440); RED CELL DISTRIBUTION WIDTH 19.1 % (11.5-14.5); WHITE BLOOD COUNT 17.7 X10'3 (4.5-11.0)
[2024-04-22 07:56] LABS: ALBUMIN 2.4 G/DL (3.4-5.0); ANION GAP 5 (8-16); BLOOD UREA NITROGEN 52 MG/DL (7-18); BUN/CREATININE RATIO 30.1 (10.0-20.0); CALCIUM 8.5 MG/DL (8.5-10.1); CHLORIDE 103 MMOL/L (99-107); CREATININE 1.73 MG/DL (0.60-1.10); GLUCOSE 90 MG/DL (70-104); POTASSIUM 5.9 MMOL/L (3.5-5.1); SODIUM 134 MMOL/L (135-145); TOTAL CARBON DIOXIDE 25.6 MMOL/L (24-32); eCRCL 45 ML/MIN; eGFR 39 ML/MIN
[2024-04-22 08:00] VITALS: RESP 20; O2SAT 95
[2024-04-22] MEDS ORDERED: FURO20TA4 PO (08:14)
[2024-04-22 09:51] LABS: PLATELET ESTIMATE INCREASED
[2024-04-22 09:53] LABS: ANISOCYTOSIS 2+; TARGET CELLS FEW
[2024-04-22 11:00] VITALS: BP 102/60; PULSE 96; RESP 17; TEMP 97.6; O2SAT 97
[2024-04-22 15:00] VITALS: BP 94/54; PULSE 87; RESP 25; TEMP 96.8; O2SAT 99
== END 2024-04-22 17:39 | disposition home health service (06) | DRG 219 ==
LOC: PAS IN 04-11 05:36 → CICU 2S 04-11 11:24 → PCU 3S 04-14 10:06
PROVIDERS: ADMIT Thoracic Surgery (Cardiothoracic Vascular Surgery); ATTEND Thoracic Surgery (Cardiothoracic Vascular Surgery)
PROC: 02L70CK Occlusion of Left Atrial Appendage with Extraluminal Device, Open Approach (ICD-10-PCS; 2024-04-11)
PROC: B24BZZ4 Ultrasonography of Heart with Aorta, Transesophageal (ICD-10-PCS; 2024-04-11)
PROC: 02RX0JZ Replacement of Thoracic Aorta, Ascending/Arch with Synthetic Substitute, Open Approach (ICD-10-PCS; 2024-04-11)
PROC: 5A1221Z Performance of Cardiac Output, Continuous (ICD-10-PCS; principal; 2024-04-11 07:56)
PROC: 30233N1 Transfusion of Nonautologous Red Blood Cells into Peripheral Vein, Percutaneous Approach (ICD-10-PCS; 2024-04-13)
DX: I71.21 Aneurysm of the ascending aorta, without rupture (principal); I49.01 Ventricular fibrillation; N17.0 Acute kidney failure with tubular necrosis; E87.3 Alkalosis; E87.70 Fluid overload, unspecified; N18.30 Chronic kidney disease, stage 3 unspecified; M10.9 Gout, unspecified; I48.0 Paroxysmal atrial fibrillation; I12.9 Hypertensive chronic kidney disease with stage 1 through stage 4 chronic kidney disease, or unspecified chronic kidney disease; Z80.0 Family history of malignant neoplasm of digestive organs; Z82.49 Family history of ischemic heart disease and other diseases of the circulatory system; Z79.01 Long term (current) use of anticoagulants; D64.9 Anemia, unspecified
CPT/HCPCS: 36415; 36430; 36600; 71045; 71046; 74176; 80047; 80048; 80053; 81001; 82330; 82435; 82803; 82947; 82948; 83036; 83735; 84100; 84132; 84295; 85007; 85008; 85018; 85025; 85347; 85384; 85610; 85730; 86885; 86900; 86901; 86920; 87077; 87081; 87088; 88304; 88313; 93005; 93312; 93325; 93880; 93970; 94002; 94010; 94760; 97116; 97161; 97530; A4333; A4615; A4618; A4620; A6213; A6258; A6449; A7000; A7048; C1751; C1768; C1781; G0378; J0171; J0282; J0690; J1100; J1644; J1815; J1940; J2060; J2150; J2250; J2270; J2370; J2405; J2704; J2720; J2919; J3370; J3475; J3480; J3490; J7030; J7040; J7050; J7120; P9016; P9045; P9047